=== PATIENT | female | born 1995 | race Asian ===

== ENCOUNTER 2019-12-05 14:16 | Emergency (ER) | payer MEDICAID ==
[~2019-12-05] VITALS: Ht 170.2 cm; Wt 84.8 kg
[2019-12-05 14:38] VITALS: BP 131/86; Ht 170.2 cm; Wt 84.8 kg
[2019-12-05 15:33] LABS: microscopic required? YES; urine erythrocyte 2+ (NEGATIVE)
[2019-12-05 15:41] LABS: BASOPHIL % 0.3 % (0-2); PLATELET COUNT 265 x10^3mcL (130-400)
== END 2019-12-05 16:46 | disposition home or self-care (01) ==
LOC: ED 14:16
PROVIDERS: Emergency Medicine
DX: N92.0 Excessive and frequent menstruation with regular cycle (principal); F17.210 Nicotine dependence, cigarettes, uncomplicated
CPT/HCPCS: 99406